=== PATIENT | male | born 1985 | race Caucasian/White ===

== ENCOUNTER → 2017-03-31 | Outpatient (CLI) | payer OTHER ==
[2017-03-31 14:44] LABS: SEMEN TIME OF COLLECTION 1418
[2017-03-31 14:45] LABS: COLLECTION PROBLEM NO; DAYS OF ABSTINENCE 3; METHOD OF COLLECTION MASTURBATION; SEMEN COLOR GRAY OR GRAY-WHITE (GRY/GRYWHTE); SEMEN VOLUME 6.8 ML (>1.5); TRANSPORT PROBLEM NO; TYPE OF SPECIMEN CONTAINER CUP
[2017-03-31 14:58] LABS: SPERM VIABILITY STAIN NOT INDICATED % (>58%)
== END | disposition home or self-care (01) ==
LOC: C.LAB 13:57
PROVIDERS: ATTEND Urology
DX: N46.9 Male infertility, unspecified (principal)